=== PATIENT | female | born 1985 | race Caucasian/White ===

== ENCOUNTER → 2023-04-05 15:01 | Outpatient (BNVA) | payer OTHER, SELFPAY | PROVIDERS: Visit Provider Nurse Practitioner Family | DX: R39.89 Other symptoms and signs involving the genitourinary system (principal) | CPT/HCPCS: 81003 ==

== ENCOUNTER 2024-03-31 13:22 | Outpatient (CLI) | payer OTHER, SELFPAY ==
--- NOTE | 2024-03-31 13:26 | XR_ITS ---
WS: [id number] Exam: XR chest 2V* [id number] Date/Time of Exam: 03/31/2024 1:29 PM Reason For Exam: cough No priors. Findings: The lungs are clear and fully expanded. Costophrenic angles are sharp. No infiltrates. Bronchovascula r relief appears normal. Cardiac silhouette is unremarkable. Bony elements are intact. XR/XR chest 2V* [id number] IMPRESSION: Unremarkable chest radiograph.
== END 2024-03-31 13:23 | disposition home or self-care (01) ==
LOC: RAD 13:24
PROVIDERS: PCP Nurse Practitioner Family; Visit Provider Nurse Practitioner Family
DX: R05.9 Cough, unspecified (principal)
CPT/HCPCS: 71046

== ENCOUNTER 2024-06-14 15:17 | Emergency (ER) | payer OTHER, SELFPAY ==
[2024-06-14 15:21] VITALS: BP 133/94; PULSE 88; RESP 16; TEMP 37; O2SAT 100; BMI 22.2
--- NOTE | 2024-06-14 15:26 | ECG_ITS ---
[facility] Date: 2024-06-14 Pat Name: Debbi Ellis Department: Room: Gender: Female Pediatric Cardiologist: : 1985 Requested By: Donato Funez Order Number: [id number] Jeronimo MD: Guy Caceres M.D. 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 [email or web address]
--- NOTE | 2024-06-14 16:14 | W.ED.ABDPA2 ---
HPI - Abdominal Pain General: Chief Complaint: Abdominal Pain Stated Complaint: abd pain, nausua, fever Time Seen by Provider: 06/14/24 15:23 Source: patient Mode of arrival: ambulatory Limitations: no limitations History of Present Illness: Patient is a 39-year-old female with no pertinent past medical history reporting to the emergency department complaining of acute on chronic epigastric pain. She states that she has been dealing with this pain for a while but that it got significantly worse today. She also had labs drawn today through primary care, and was found to have some elevated LFTs as well as elevated total bilirubin. She states that she is set to undergo endoscopy through [facility] in [place], however has not been called with an appointment date. She does report taking omeprazole for this pain, has not been helping. She also was recently started on Synthroid for hypothyroid. She does state that the pain radiates into her back sometimes, she has also been having quite a bit of nausea and bilious diarrhea. She does not report her pain being associated to eating, no specific alleviating or exacerbating factors are reported. She is currently having the pain at this time, reported to be mild. She denies any breathing difficulties, chest pain, cardiac history, vomiting, hematemesis, hematochezia, or urinary symptoms. She does state that she still has her gallbladder and appendix. Her vitals are normal appearing at this time. MD elicited complaint: abdominal pain Pertinent past history: none Onset (ago): month(s) Pain Consistency: intermittent Location: Epigastric Severity: mild Quality: cramping Radiation: back Exacerbating factors: nothing Relieving factors: nothing Associated Symptoms: Reports diarrhea and nausea; Denies bloating, change in stool character, chills, constipation, dysuria, fever(s), hematochezia and vomiting Treatments prior to arrival: antacids Related Data Home Medications Medication Instructions Recorded Confirmed cetirizine 10 mg capsule (Zyrtec) 10 mg PO DAILY PRN allergies 04/05/23 06/14/24 levonorgestrel 21 mcg/24 hr (up to 1 device intrauterine .Q8Y 04/05/23 06/14/24 8 years) 52 mg intrauterine device (Mirena) hydroxyzine HCl 25 mg tablet 25 mg PO BID PRN Insomnia 06/14/24 06/14/24 minocycline 100 mg capsule 100 mg PO BID 06/14/24 06/14/24 Previous Rx's Medication Instructions Recorded sucralfate 1 gram tablet (Carafate) 1 g PO BID #30 tabs 06/14/24 Allergies Allergy/AdvReac Type Severity Reaction Status Date / Time No Known Allergies Allergy Verified 03/20/24 14:15 Review of Systems General: Reports: 10 or more systems reviewed and unremarkable except in HPI and below Const: Denies: fever(s), chills, change in appetite, change in weight or diaphoresis ENMT: Denies: throat pain or hoarseness Card: Denies: chest pain, palpitations or lightheadedness Resp: Denies: dyspnea, productive cough or wheezing GI: Reports: abdominal pain, nausea and diarrhea; Denies: vomiting, constipation, bloating, change in stool character or hematochezia : Denies: flank pain, difficulty voiding, dysuria, urinary frequency or urinary urgency Musc: Reports: back pain; Denies: neck pain Skin/Breast: Denies: rash or new lesions Neuro: Denies: headache(s) or dizziness PFSH ED PFSH: Social History Smoking and tobacco/nicotine status: never used tobacco/nicotine Second hand smoke exposure: No Alcohol intake: never Substance/Drug Use: never Physical Exam Const: COMMON NORMALS: no acute distress, average body habitus, no limitations, healthy appearing and well nourished GENERAL APPEARANCE: cooperative and comfortable ORIENTATION/CONSCIOUSNESS: Yes awake HENMT: COMMON NORMALS: normocephalic, atraumatic, hearing grossly normal bilaterally, external ears normal, Normal external nose present, Normal nasal mucous membranes and turbinates present and moist oral mucous membranes HEAD & SCALP: normocephalic and atraumatic NOSE: Normal external nose present and Normal nasal mucous membranes and turbinates present EXTERNAL EAR: Yes external ears normal Eye: COMMON NORMALS: Equal, round and reactive pupils present, EOMs intact bilaterally, conjunctivae normal and normal visual garcia by confrontation CONJUNCTIVA: Yes conjunctivae normal PUPIL: Yes Equal, round and reactive pupils present Neck/C-Spine: COMMON NORMALS: full ROM, supple and no JVD Resp: COMMON NORMALS: normal respiratory effort, No retractions, No use of accessory muscles and clear to auscultation bilaterally AUSCULTATION: clear to auscultation bilaterally, no crackles, no rales, no rhonchi and no wheezes Cardio: COMMON NORMALS: no JVD, regular rate, regular rhythm, S1 normal heart sound present, S2 normal heart sound present, No gallops present (Cardio), No clicks present (Cardio), No murmurs present (Cardio), No rub (Cardio) and Peripheral pulses 2+ throughout RATE: regular rate RHYTHM: regular rhythm HEART SOUNDS: S1 normal heart sound present and S2 normal heart sound present PERIPHERAL PULSES: Peripheral pulses 2+ throughout GI: COMMON NORMALS: Normal to inspection, nondistended, normoactive bowel sounds present, Soft to palpation, No hepatosplenomegaly present and no masses AUSCULTATION: Yes normoactive bowel sounds PALPATION: Yes Soft to palpation, Yes Tenderness to palpation present (GI) (Epigastric), No Guarding due to palpation present (GI), No Rigid due to palpation and Yes No hepatosplenomegaly present RECTAL EXAM: deferred OTHER: Negative Mora sign. No peritoneal signs. Extremity: COMMON NORMALS: normal to inspection and full ROM Psych: COMMON NORMALS: mental status grossly normal, cooperative and speech normal SPEECH: Yes normal speech Skin: COMMON NORMALS: no rashes or lesions noted GENERAL SKIN EXAM: no rashes or lesions noted Course Vital Signs: Vital signs: Vital Signs Temperature 98.6 F 06/14/24 15:21 Pulse Rate 71 06/14/24 16:31 Respiratory Rate 16 06/14/24 15:21 Blood Pressure 111/75 06/14/24 16:29 Pulse Oximetry 98 06/14/24 16:31 Oxygen Delivery Me thod Room Air 06/14/24 16:31 MDM - Abdominal Pain Medical Decision Making Patient presented with chronic epigastric pain, takes omeprazole. States she is trying to get to general surgery at [facility] but has not been called. Today had labs showing transaminitis with primary care, presented here for evaluation in the emergency department. Her vitals have been stable throughout ED course. There was some epigastric tenderness to palpation on exam, no hepatosplenomegaly or other concerning abdominal findings. No history of abdominal surgeries. Again here she did have evidence of elevation in her LFTs minor elevation in T. bili, denied known diagnosis of Gilbert syndrome or Crigler-Damaris. CT not showing any abnormalities with the liver, gallbladder, or biliary tree. I have very low suspicion for any blocked stone at this time, will refer her to our general surgery here so that they can see her may be quicker. Her pain is much improved after GI cocktail, nausea has been controlled here with Zofran. Her epigastric pain I believe at this time is potentially a gastritis or maybe even a stomach ulcer, and will prescribe Carafate for her to take. Informed her to return with any severe worsening in her pain, yellowing of her skin, high fevers, or bloody/black tarry stools. She agrees with this plan, will be discharged home at this time. Lab Data 06/14/24 16:20 06/14/24 16:20 Labs/Radiology: Radiology Impressions Abdomen/Pelvis CT 06/14/24 16:49 IMPRESSION: No acute findings. Laboratory Results WBC 8.93 10^3/uL (3.29-11.43) 06/14/24 16:20 RBC 3.80 10^6/uL (3.85-5.65) L 06/14/24 16:20 Hgb 11.60 g/dL (11.27-16.99) 06/14/24 16:20 Hct 34.7 % (36-47) L 06/14/24 16:20 MCV 91.3 fl (85-98) 06/14/24 16:20 MCH 30.5 pg (27-33) 06/14/24 16:20 MCHC 33.4 g/dL (30-55) 06/14/24 16:20 RDW 11.9 % (12.1-15.1) L 06/14/24 16:20 Plt Count 244 10^3/cmm (157-399) 06/14/24 16:20 MPV 10.7 fL (7.4-10.4) H 06/14/24 16:20 Neut % (Auto) 87.4 % 06/14/24 16:20 Lymph % (Auto) 6.6 % 06/14/24 16:20 Cecil % (Auto) 4.4 % 06/14/24 16:20 Eos % (Auto) 1.1 % 06/14/24 16:20 Baso % (Auto) 0.3 % 06/14/24 16:20 Neut # (Auto) 7.80 10^3/uL (1.8-7.7) H 06/14/24 16:20 Lymph # (Auto) 0.6 10^3/uL (0.8-4.8) L 06/14/24 16:20 Cecil # (Auto) 0.4 10^3/uL (0.2-0.9) 06/14/24 16:20 Eos # (Auto) 0.1 10^3/uL (0.0-0.8) 06/14/24 16:20 Baso # (Auto) 0.0 10^3/uL (0.0-0.1) 06/14/24 16:20 Nucleated RBC % (auto) 0 % 06/14/24 16:20 Nucleated RBCs # 0.0 /100WBC 06/14/24 16:20 Sodium 139 mmol/L (136-145) 06/14/24 16:20 Potassium 3.6 mmol/L (3.5-5.1) 06/14/24 16:20 Chloride 107 mmol/L (98-107) 06/14/24 16:20 Carbon Dioxide 24 mmol/L (22-29) 06/14/24 16:20 Anion Gap 11.6 (5-19) 06/14/24 16:20 BUN 5 mg/dL (6-20) L 06/14/24 16:20 Creatinine 0.6 mg/dL (0.5-0.9) 06/14/24 16:20 GFR Calculation 111.3 mL/min (90-130) 06/14/24 16:20 Glucose 128 mg/dL (65-115) H 06/14/24 16:20 Calculated Osmolality 287 mOsm/kg (285-295) 06/14/24 16:20 Calcium 9.4 mg/dL (8.5-10.5) 06/14/24 16:20 Total Bilirubin 2.2 mg/dL (0.15-1.2) H 06/14/24 16:20 AST 160 U/L (0-32) H 06/14/24 16:20 ALT 149 U/L (0-33) H 06/14/24 16:20 Alkaline Phosphatase 121 U/L (35-105) H 06/14/24 16:20 Total Protein 6.8 g/dL (6.6-8.7) 06/14/24 16:20 Albumin 4.3 g/dL (3.5-5.2) 06/14/24 16:20 Globulin 2.5 g/dL (1.3-4.6) 06/14/24 16:20 Lipase 26 U/L (13-60) 06/14/24 16:20 HCG, Qual Negative (Negative) 06/14/24 16:20 Urine Color Yellow (Yellow) 06/14/24 15:48 Urine Appearance Clear (CLEAR) 06/14/24 15:48 Urine pH 6.0 (5-7) 06/14/24 15:48 Ur Specific [place] 1.009 (1.005-1.030) 06/14/24 15:48 Urine Protein Negative (Negative) 06/14/24 15:48 Urine Glucose (UA) Negative (Normal) 06/14/24 15:48 Urine Ketones Negative (Negative) 06/14/24 15:48 Urine Blood 3+ (Negative) A 06/14/24 15:48 Urine Nitrate Negative (Negative) 06/14/24 15:48 Urine Bilirubin Negative (Negative) 06/14/24 15:48 Urine Urobilinogen 1.0 mg/dL (Negative) 06/14/24 15:48 Ur Leukocyte Esterase Trace (Negative) A 06/14/24 15:48 Urine RBC 0-2 /hpf (0-2) 06/14/24 15:48 Urine WBC 6-10 /hpf (0-5) 06/14/24 15:48 Ur Squamous Epith Cells 0-5 /hpf (0-5) 06/14/24 15:48 Amorphous Sediment Not Reportable 06/14/24 15:48 Urine Bacteria None seen /hpf (NONE) 06/14/24 15:48 Hyaline Casts 0-4 /lpf H 06/14/24 15:48 All radiology interpretation(s) finalized by discharge Discharge Plan Discharge Patient Disposition: Home Clinical Impression: Epigastric abdominal pain, Transaminitis Condition: Stable Prescriptions: New sucralfate [Carafate] 1 gram tablet 1 g PO BID Qty: 30 0RF No Action Zyrtec 10 mg capsule 10 mg PO DAILY PRN (Reason: allergies) Mirena 21 mcg/24 hours (8 yrs) 52 mg intrauterine device 1 device intrauterine .Q8Y minocycline 100 mg capsule 100 mg PO BID hydroxyzine HCl 25 mg tablet 25 mg PO BID PRN (Reason: Insomnia) Discharge Orders: Discharge ED (Routine); Ordered 06/14/24 Ordered By: Donato Urbina Referrals: Misti Alcantar FNP [Primary Care Provider] - Patient Instructions: Abdominal Pain (ED) Activity Restrictions/Additional Instructions: Follow-up with general surgery, await call to schedule an appointment. Take Carafate, also continue taking omeprazole. Avoid any exacerbating food or drinks such as coffee or chocolate. Please monitor your condition return to the emergency department with any new or concerning symptoms. Make sure to drink plenty of water. Coding Level of Care Code ED Liner Machine Operator for Tyler Sánchez
[2024-06-14 16:28] LABS: Basophils % 0.3 %; Eosinophils # 0.1 10^3/uL (0.0-0.8); Eosinophils % 1.1 %; Hematocrit 34.7 % (36-47); Lymphocytes # 0.6 10^3/uL (0.8-4.8); Lymphocytes % 6.6 %; Mean Corpuscular HGB Conc 33.4 g/dL (30-55); Mean Corpuscular Hemoglobin 30.5 pg (27-33); Mean Corpuscular Volume 91.3 fl (85-98); Mean Platelet Volume 10.7 fL (7.4-10.4); Monocytes # 0.4 10^3/uL (0.2-0.9); Monocytes % 4.4 %; Neutrophils % 87.4 %; Nucleated Red Blood Cells % 0 %; Platelet Count 244 10^3/cmm (157-399); Red Cell Distribution Width 11.9 % (12.1-15.1); White Blood Count 8.93 10^3/uL (3.29-11.43)
[2024-06-14] MEDS: ondansetron 2 mg/ML SDV 2 mL 4 MG IVP ×2 (16:28→18:32)
[2024-06-14 16:29] VITALS: BP 111/75; PULSE 71; O2SAT 99
[2024-06-14 16:31] VITALS: PULSE 71; O2SAT 98
[2024-06-14] MEDS: lidocaine 2% viscous 15 ML, aluminum-mag hydrox-simethicon 30 ML, sucralfate oral liq 1 GM PO (16:34)
--- NOTE | 2024-06-14 16:37 | PC.PHAR ---
Patient has Mirena but unsure of the time frame.States it has been few years.
[2024-06-14 16:38] LABS: HCG, Serum Qual Negative (Negative)
[2024-06-14 16:43] LABS: Alanine Aminotransferase 149 U/L (0-33); Albumin Level 4.3 g/dL (3.5-5.2); Alkaline Phosphatase 121 U/L (35-105); Anion Gap 11.6 (5-19); Aspartate Amino Transferase 160 U/L (0-32); Blood Urea Nitrogen 5 mg/dL (6-20); Calcium 9.4 mg/dL (8.5-10.5); Carbon Dioxide 24 mmol/L (22-29); Chloride 107 mmol/L (98-107); Creatinine Clr Calc Pharmacy 137.5643; Globulin 2.5 g/dL (1.3-4.6); Glomerular Filtration Rate 111.3 mL/min (90-130); Glucose 128 mg/dL (65-115); Lipase 26 U/L (13-60); Osmolality Calculated 287 mOsm/kg (285-295); Potassium 3.6 mmol/L (3.5-5.1); Sodium 139 mmol/L (136-145); Total Bilirubin 2.2 mg/dL (0.15-1.2); Total Protein 6.8 g/dL (6.6-8.7)
--- NOTE | 2024-06-14 16:49 | CTR_ITS ---
PROCEDURE INFORMATION: Exam: CT Abdomen And Pelvis With Contrast Exam date and time: 06/14/2024 5:06 PM Age: 39 years old Clinical indication: Abdominal pain; Epigastric pain, elevated tbili and lfts TECHNIQUE: Imaging protocol: Computed tomography of the abdomen and pelvis with contrast. Radiation optimization: All CT scans at this facility use at least one of these dose optimization techniques: automated exposure control; mA and/or kV adjustment per patient size (includes targeted exams where dose is matched to clinical indication); or iterative reconstruction. Contrast material: OMNIPAQUE 350; Contrast volume: 100 ml; Contrast route: INTRAVENOUS (IV); COMPARISON: CR XR chest 2V* [id number] 03/31/2024 1:32 PM RADIATION DOSE METRICS: Total DLP (mGy-cm): 396.43 FINDINGS: Liver: Normal. No mass. Gallbladder and biliary ducts: Normal. No calcified stones. No ductal dilation. Pancreas: Normal. No ductal dilation. Spleen: Normal. No splenomegaly. Adrenal glands: Normal. No mass. Kidneys and ureters: Normal. No hydronephrosis. Stomach and bowel: Unremarkable. No obstruction. No mucosal thickening. Appendix: No evidence of appendicitis. Intraperitoneal space: Unremarkable. No free air. No significant fluid collection. Vasculature: Unremarkable. No abdominal aortic aneurysm. Lymph nodes: Unremarkable. No enlarged lymph nodes. Urinary bladder: Unremarkable as visualized. Reproductive: There is an IUD in the uterus. Bones/joints: Unremarkable. No acute fracture. Soft tissues: Unremarkable. CT/CT abdomen pelvis w con* [id number] IMPRESSION: No acute findings.
[2024-06-14 16:52] LABS: Bilirubin Urine Negative (Negative); Blood Urine 3+ (Negative); Glucose Urine UA Negative (Normal); Ketones Urine Negative (Negative); Leukocyte Esterase Urine Trace (Negative); Nitrate Urine Negative (Negative); Protein Urine Negative (Negative); Specific Gravity, Urine 1.009 (1.005-1.030); Urine Appearance Clear (CLEAR); Urine Color Yellow (Yellow)
[2024-06-14 16:58] LABS: Add Urine Microscopic? YES; Bacteria Urine None Seen /hpf; Hyaline Casts Urine 0-4 /lpf; RBC Urine 0-2 /hpf (0-2); Squamous Epithelial Cell Urine 0-5 /hpf (0-5)
[2024-06-14] MEDS: iohexol 350 mg/mL 500 mL Btl (per mL) IV (17:10)
[2024-06-14 17:12] LABS: Add Urine Culture? No
--- NOTE | 2024-06-15 09:48 | DCPLANNER ---
messaged gen surg for er f/u
== END 2024-06-14 18:40 | disposition home or self-care (01) ==
PROVIDERS: Family Medicine; Emergency Provider Physician Assistant; PCP Nurse Practitioner Family
DX: R10.13 Epigastric pain (principal); R74.01 Elevation of levels of liver transaminase levels
CPT/HCPCS: 36415; 74177; 80053; 81001; 83690; 84703; 85025; 93005; 96374; 96376; 99285; J2405

== ENCOUNTER 2024-06-16 07:41 | Outpatient (CLI) | payer OTHER, SELFPAY ==
--- NOTE | 2024-06-16 07:47 | US_ITS ---
WS: [id number] RIGHT UPPER QUADRANT ULTRASOUND HISTORY: ELEVATED LIVER ENZYMES COMPARISON: None available. Liver: 14.0 cm in length. Normal size liver and echogenicity. No bile duct dilatation or mass. Portal Vein: Normal hepatopetal flow with monophasic waveform. Gallbladder: Normally distended gallbladder with no stones or wall thickening. CBD: 0.3 cm Pancreas: Normal size and echogenicity. Right kidney: 11.1 cm in length. Normal size and echogenicity. No hydronephrosis or mass. Aorta and IVC: Unremarkable abdominal aorta and IVC. No ascites. US/US gall bladder [id number] IMPRESSION: Normal right upper quadrant ultrasound.
== END 2024-06-16 07:42 | disposition home or self-care (01) ==
PROVIDERS: PCP Nurse Practitioner Family; Visit Provider Nurse Practitioner Family
DX: R74.01 Elevation of levels of liver transaminase levels (principal)
CPT/HCPCS: 76705

== ENCOUNTER 2024-08-11 17:06 | Emergency (ER) | payer OTHER, SELFPAY ==
[2024-08-11 17:06] VITALS: BP 126/76; PULSE 64; RESP 16; TEMP 36.3; O2SAT 98; BMI 21.2
--- NOTE | 2024-08-11 17:23 | CTR_ITS ---
PROCEDURE INFORMATION: Exam: CTA Head With Contrast, Arteriography Exam date and time: 08/11/2024 5:48 PM Age: 39 years old Clinical indication: Dizziness and giddiness; Headache; C/O PRICE with dizziness and nasuea. Posterior neck pain. TECHNIQUE: Imaging protocol: Computed tomographic angiography of the head with contrast. Exam focused on the arteries. Axial, coronal and sagittal reformatted images were created and reviewed. 3D rendering (Not supervised by radiologist): MIP and/or 3D reconstructed images were created by the technologist. Radiation optimization: All CT scans at this facility use at least one of these dose optimization techniques: automated exposure control; mA and/or kV adjustment per patient size (includes targeted exams where dose is matched to clinical indication); or iterative reconstruction. Contrast material: OMNI 350; Contrast volume: 100 ml; Contrast route: INTRAVENOUS (IV); COMPARISON: CT head wo con* [id number] 08/11/2024 5:48 PM RADIATION DOSE METRICS: Total DLP (mGy-cm): 380.36 FINDINGS: ANTERIOR CIRCULATION: Right internal carotid artery: Intracranial segment is patent with no significant stenosis. No aneurysm. Right middle cerebral artery: No occlusion or significant stenosis. No aneurysm. Right anterior cerebral artery: No occlusion or significant stenosis. No aneurysm. Left internal carotid artery: Intracranial segment is patent with no significant stenosis. No aneurysm. Left middle cerebral artery: No occlusion or significant stenosis. No aneurysm. Left anterior cerebral artery: No occlusion or significant stenosis. No aneurysm. POSTERIOR CIRCULATION: Right vertebral artery: No occlusion or significant stenosis. No aneurysm. Left vertebral artery: No occlusion or significant stenosis. No aneurysm. Basilar artery: No occlusion or significant stenosis. No aneurysm. Right posterior cerebral artery: No occlusion or significant stenosis. No aneurysm. Left posterior cerebral artery: No occlusion or significant stenosis. No aneurysm. Brain: No definite mass, mass effect, or midline shift. Cerebral ventricles: No ventriculomegaly. Bones/joints: Unremarkable. No acute fracture. Soft tissues: Unremarkable. PROCEDURE INFORMATION: Exam: CTA Neck With Contrast Exam date and time: 08/11/2024 5:48 PM Age: 39 years old Clinical indication: Dizziness and giddiness; Headache; C/O PRICE with dizziness and nasuea. Posterior neck pain. TECHNIQUE: Imaging protocol: Computed tomographic angiography of the neck with contrast. Exam focused on the cervical segments of the vasculature. Axial, coronal and sagittal reformatted images were created and reviewed. 3D rendering (Not supervised by radiologist): MIP and/or 3D reconstructed images were created by the technologist. Radiation optimization: All CT scans at this facility use at least one of these dose optimization techniques: automated exposure control; mA and/or kV adjustment per patient size (includes targeted exams where dose is matched to clinical indication); or iterative reconstruction. Contrast material: OMNI 350; Contrast volume: 100 ml; Contrast route: INTRAVENOUS (IV); COMPARISON: CT head wo [facility]* [id number] 08/11/2024 5:48 PM RADIATION DOSE METRICS: Total DLP (mGy-cm): 380.36 FINDINGS: Right common carotid artery: No stenosis. No dissection or occlusion. Right internal carotid artery: Normal. Extracranial segment patent with no significant stenosis. No dissection or occlusion. Right external carotid artery: No occlusion or stenosis of the origin. Left common carotid artery: No stenosis. No dissection or occlusion. Left internal carotid artery: Normal. Extracranial segment patent with no significant stenosis. No dissection or occlusion. Left external carotid artery: No occlusion or stenosis of the origin. Right vertebral artery: No stenosis. No dissection or occlusion. Left vertebral artery: No stenosis. No dissection or occlusion. Soft tissues: Unremarkable. Bones/joints: No acute osseous abnormality. Slight reversal of the normal cervical lordosis. CT/CT angio headneck* [id number] IMPRESSION: No large vessel stenosis or occlusion. IMPRESSION: No stenosis or occlusion. REFERENCES: NASCET CRITERIA. The degree of stenosis in the cervical segment of the internal carotid artery is based on NASCET criteria. Normal is no stenosis. Mild is less than 50% stenosis. Moderate is 50-69% stenosis. Severe is 70% to 99% stenosis. Total occlusion is no detectable patent lumen.
--- NOTE | 2024-08-11 17:23 | CTR_ITS ---
PROCEDURE INFORMATION: Exam: CT Head Without Contrast Exam date and time: 08/11/2024 5:48 PM Age: 39 years old Clinical indication: Headache and other: Neck pain; C/O PRICE with dizziness and nasuea. Posterior neck pain. TECHNIQUE: Imaging protocol: Computed tomography of the head without contrast. Axial, coronal and sagittal reformatted images were created and reviewed. Radiation optimization: All CT scans at this facility use at least one of these dose optimization techniques: automated exposure control; mA and/or kV adjustment per patient size (includes targeted exams where dose is matched to clinical indication); or iterative reconstruction. COMPARISON: CT angio headneck* [id number] 08/11/2024 5:48 PM RADIATION DOSE METRICS: Total DLP (mGy-cm): 1079.38 FINDINGS: Brain: No CT evidence of acute intracranial hemorrhage or acute territorial infarction. No significant mass effect or midline shift. Basal cisterns patent. Cerebral ventricles: Normal in size and configuration. Paranasal sinuses: Unremarkable. No fluid levels. Mastoid air cells: Grossly unremarkable. Bones: Unremarkable. No acute fracture. Soft tissues: Grossly unremarkable. CT/CT head wo con* [id number] IMPRESSION: No CT evidence of acute intracranial pathology.
--- NOTE | 2024-08-11 17:24 | ED_ITS ---
HPI - Headache 2 General: Chief Complaint: Headache Stated Complaint: neck pain,headache Time Seen by Provider: 08/11/24 17:17 Source: patient Mode of arrival: ambulatory Limitations: no limitations History of Present Illness: 39-year-old female states been having a headache little over a week. States been a posterior headache states she is also been having posterior neck pain has been going on roughly for a month. States that the tension-like pain she had some photophobia and phonophobia she denies any fevers denies any injuries states headaches currently a 6 out of 10. Associated symptoms: Deny chest pain, fever(s), nausea, rash or vomiting Related Data Home Medications ?Medication ?Instructions ?Recorded ?Confirmed cetirizine 10 mg capsule (Zyrtec) 10 mg PO DAILY PRN a llergies 04/05/23 06/14/24 levonorgestrel 21 mcg/24 hr (up to 1 device intrauteri ne .Q8Y 04/05/23 06/14/24 8 years) 52 mg intrauterine device (Mirena) hydroxyzine HCl 25 mg tablet 25 mg PO BID PRN Insomnia 06/14/24 06/14/24 minocycline 100 mg capsule 100 mg PO BID 06/14/2405/28 Previous Rx's ?Medication ?Instructions ?Recorded sucralfate 1 gram tablet (Carafate) 1 g PO BID #30 tab s 06/14/24 Allergies Allergy/AdvReac Type Severity Reaction Status Date / Time No Known Allergies Allergy Verified 03/20/24 14:15 Review of Systems 2 Const: Denies: fever(s), chills, body aches or change in appetite Eyes: Denies: blurry vision or eye discomfort ENMT: Denies: throat pain or dental pain Card: Denies: chest pain Resp: Denies: dyspnea GI: Denies: abdominal pain, nausea, vomiting or diarrhea Musc: Reports: neck pain; Denies: back pain Skin/Breast: Denies: rash Neuro: Reports: headache(s) PFSH ED 2 PFSH: Social History Smoking and tobacco/nicotine status: never used tobacco/nicotine Second hand smoke exposure: No Alcohol intake: never Substance/Drug Use: never Physical Exam 2 Const: COMMON NORMALS: no acute distress, patient oriented x3 and healthy appearing HENMT: COMMON NORMALS: normocephalic and atraumatic HEAD & SCALP: n ormocephalic and atraumatic Eye: COMMON NORMALS: Equal, round and reactive pupils present and EOMs intact bilaterally PUPIL: Yes Equal, round and reactive pupils present Neck/C-Spine: COMMON NORMALS: full ROM, supple and no meningeal signs Chest: COMMONS NORMALS: normal inspection of the chest Resp: COMMON NORMALS: normal respiratory effort Cardio: COMMON NORMALS: regular rate, regular rhythm and No murmurs present (Cardio) RATE: regular rate RHYTHM: regular rhythm Extremity: COMMON NORMALS: normal to inspection and full ROM Neuro: COMMON NORMALS: patient oriented x3, moves all extremities and no focal motor deficits MENINGEAL SIGNS: Yes no meningeal signs Psych: COMMON NORMALS: mental status grossly normal, Normal thought process present and cooperative THOUGHT PROCESS: Normal thought process present Skin: COMMON NORMALS: no rashes or lesions noted and no wounds GENERAL SKIN EXAM: no rashes or lesions noted Course 2 Vital Signs: Vital signs: Vital Signs Temperature 97.4 F L 08/11/24 17:06 Pulse Rate 85 08/11/24 18:30 Respiratory Rate 16 08/11/24 18:30 Blood Pressure 120/80 08/11/24 18:30 Pulse Oximetry 100 08/11/24 18:30 Oxygen Delivery Me thod Room Air 08/11/24 17:06 MDM - Headache Medical Decision Making Patient presents here with a headaches likely tension headache imaging here is normal no signs of intracranial hemorrhage dissection or aneurysm her headache has improved here she stable for discharge follow-up PCP return if worsening. Medical Records I reviewed the patient's medical records. Lab Data I reviewed the patient's lab results. 08/11/24 18:05 08/11/24 18:[address] 08/11/24 17:23 IMPRESSION: No CT evidence of acute intracranial pathology. Head/Neck CTA 08/11/24 17:23 IMPRESSION: No large vessel stenosis or occlusion. IMPRESSION: No stenosis or occlusion. REFERENCES: NASCET CRITERIA. The degree of stenosis in the cervical segment of the internal carotid artery is based on NASCET criteria. Normal is no stenosis. Mild is less than 50% stenosis. Moderate is 50-69% stenosis. Severe is 70% to 99% stenosis. Total occlusion is no detectable patent lumen. Laboratory Results WBC 9.83 10^3/uL (3.29-11.43) 08/11/24 18:05 RBC 4.10 10^6/uL (3.85-5.65) 08/11/24 18:05 Hgb 12.60 g/dL (11.27-16.99) 08/11/24 18:05 Hct 37.9 % (36-47) 08/11/24 18:05 MCV 92.4 fl (85-98) 08/11/24 18:05 MCH 30.7 pg (27-33) 08/11/24 18:05 MCHC 33.2 g/dL (30-55) 08/11/24 18:05 RDW 11.9 % (12.1-15.1) L 08/11/24 18:05 Plt Count 275 10^3/cmm (157-399) 08/11/24 18:05 MPV 11.0 fL (7.4-10.4) H 08/11/24 18:05 Neut % (Auto) 82.7 % 08/11/24 18:05 Lymph % (Auto) 11.2 % 08/11/24 18:05 Murray % (Auto) 5.3 % 08/11/24 18:05 Eos % (Auto) 0.4 % 08/11/24 18:05 Baso % (Auto) 0.2 % 08/11/24 18:05 Neut # (Auto) 8.13 10^3/uL (1.8-7.7) H 08/11/24 18:05 Lymph # (Auto) 1.1 10^3/uL (0.8-4.8) 08/11/24 18:05 Murray # (Auto) 0.5 10^3/uL (0.2-0.9) 08/11/24 18:05 Eos # (Auto) 0.0 10^3/uL (0.0-0.8) 08/11/24 18:05 Baso # (Auto) 0.0 10^3/uL (0.0-0.1) 08/11/24 18:05 Nucleated RBC % (auto) 0 % 08/11/24 18:05 Nucleated RBCs # 0.0 /100WBC 08/11/24 18:05 Sodium 136 mmol/L (136-145) 08/11/24 18:05 Potassium 3.4 mmol/L (3.5-5.1) L 08/11/24 18:05 Chloride 101 mmol/L (98-107) 08/11/24 18:05 Carbon Dioxide 24 mmol/L (22-29) 08/11/24 18:05 Anion Gap 14.4 (5-19) 08/11/24 18:05 BUN 10 mg/dL (6-20) 08/11/24 18:05 Creatinine 0.6 mg/dL (0.5-0.9) 08/11/24 18:05 GFR Calculation 111.3 mL/min (90-130) 08/11/24 18:05 Glucose 103 mg/dL (65-115) 08/11/24 18:05 Calculated Osmolality 281 mOsm/kg (285-295) L 08/11/24 18:05 Calcium 9.5 mg/dL (8.5-10.5) 08/11/24 18:05 Total Bilirubin 1.5 mg/dL (0.15-1.2) H 08/11/24 18:05 AST 28 U/L (0-32) 08/11/24 18:05 ALT 69 U/L (0-33) H 08/11/24 18:05 Alkaline Phosphatase 114 U/L (35-105) H 08/11/24 18:05 Total Protein 6.9 g/dL (6.6-8.7) 08/11/24 18:05 Albumin 4.5 g/dL (3.5-5.2) 08/11/24 18:05 Globulin 2.4 g/dL (1.3-4.6) 08/11/24 18:05 All radiology interpretation(s) finalized by discharge Discharge Plan Discharge Patient Disposition: Home Clinical Impression: Headache Condition: Stable Prescriptions: No Action Zyrtec 10 mg capsule 10 mg PO DAILY PRN (Reason: allergies) Mirena 21 mcg/24 hours (8 yrs) 52 mg intrauterine device 1 device intrauterine .Q8Y minocycline 100 mg capsule 100 mg PO BID hydroxyzine HCl 25 mg tablet 25 mg PO BID PRN (Reason: Insomnia) sucralfate [Carafate] 1 gram tablet 1 g PO BID Qty: 30 0RF Discharge Orders: Discharge ED (Routine); Ordered 08/11/24 Ordered By: Sakina Christianson Referrals: Misti Alcantar FNP [Primary Care Provider] - Discharge Diet: Advance as tolerated Discharge Activity: Resume usual activity Patient Instructions: General Headache (ED) Print Language: Montserratian Coding Level of Care Code ED Instrument Designer for Tyler Sánchez
[2024-08-11] MEDS: iohexol 350 mg/mL 500 mL Btl (per mL) IV (17:32)
[2024-08-11] MEDS: promethazine 25 mg/mL SDV 1 mL IM (18:05)
[2024-08-11] MEDS: ketorolac 30 mg/mL INJ IVP (18:05)
[2024-08-11 18:11] LABS: Basophils % 0.2 %; Eosinophils % 0.4 %; Hematocrit 37.9 % (36-47); Lymphocytes # 1.1 10^3/uL (0.8-4.8); Lymphocytes % 11.2 %; Mean Corpuscular HGB Conc 33.2 g/dL (30-55); Mean Corpuscular Hemoglobin 30.7 pg (27-33); Mean Corpuscular Volume 92.4 fl (85-98); Monocytes # 0.5 10^3/uL (0.2-0.9); Monocytes % 5.3 %; Neutrophils # 8.13 10^3/uL (1.8-7.7); Neutrophils % 82.7 %; Nucleated Red Blood Cells % 0 %; Platelet Count 275 10^3/cmm (157-399); Red Cell Distribution Width 11.9 % (12.1-15.1); White Blood Count 9.83 10^3/uL (3.29-11.43)
[2024-08-11 18:21] VITALS: BP 118/54; O2SAT 100
[2024-08-11 18:30] VITALS: BP 120/80; PULSE 85; RESP 16; O2SAT 100
[2024-08-11 18:35] LABS: Alanine Aminotransferase 69 U/L (0-33); Albumin Level 4.5 g/dL (3.5-5.2); Alkaline Phosphatase 114 U/L (35-105); Anion Gap 14.4 (5-19); Aspartate Amino Transferase 28 U/L (0-32); Blood Urea Nitrogen 10 mg/dL (6-20); Calcium 9.5 mg/dL (8.5-10.5); Carbon Dioxide 24 mmol/L (22-29); Chloride 101 mmol/L (98-107); Creatinine Clr Calc Pharmacy 135.0405; Globulin 2.4 g/dL (1.3-4.6); Glomerular Filtration Rate 111.3 mL/min (90-130); Glucose 103 mg/dL (65-115); Osmolality Calculated 281 mOsm/kg (285-295); Potassium 3.4 mmol/L (3.5-5.1); Sodium 136 mmol/L (136-145); Total Bilirubin 1.5 mg/dL (0.15-1.2); Total Protein 6.9 g/dL (6.6-8.7)
[2024-08-11 19:02] VITALS: BP 120/80; PULSE 80; RESP 16; O2SAT 100
== END 2024-08-11 19:03 | disposition home or self-care (01) ==
PROVIDERS: Emergency Provider Emergency Medicine; PCP Nurse Practitioner Family
DX: R51.9 Headache, unspecified (principal)
CPT/HCPCS: 36415; 70450; 70496; 70498; 80053; 85025; 96372; 96374; 99285; J1885; J2550

== ENCOUNTER 2025-01-08 20:46 | Emergency (ER) | payer OTHER, SELFPAY ==
--- NOTE | 2025-01-08 20:49 | XRR_ITS ---
PROCEDURE INFORMATION: Exam: XR Chest Exam date and time: 01/08/2025 9:05 PM Age: 39 years old Clinical indication: Pain; Chest pressure; Additional info: Cp TECHNIQUE: Imaging protocol: Radiologic exam of the chest. Views: 1 view. COMPARISON: CR XR chest 2V* [id number] 03/31/2024 1:32 PM FINDINGS: Lungs: Unremarkable. No consolidation. Pleural spaces: Unremarkable. No pleural effusion. No pneumothorax. Heart/Mediastinum: Unremarkable. No cardiomegaly. Bones/joints: Unremarkable. XR/XR chest 1V portable [id number] IMPRESSION: No acute findings.
--- NOTE | 2025-01-08 20:52 | ECG_ITS ---
[facility] Date: 2025-01-08 Pat Name: Debbi Ellis Department: Room: Gender: Female [employer]per: : 1985 Requested By: Sakina Christianson Order Number: [id number] Phani MD: Guy Caceres M.D. Measurements Intervals [place] Rate: 63 P: 70 [place]: 150 QRS: 3 QRSD: 83 T: 53 QT: 378 QTc: 389 Interpretive Statements SINUS RHYTHM POSSIBLE LEFT ATRIAL ENLARGEMENT [-0.1mV P-WAVE IN V1/V2] POSSIBLE RIGHT VENTRICULAR CONDUCTION DELAY [RSR (QR) IN V1/V2] INTERPRETATION BASED ON A DEFAULT AGE OF 40 YEARS Compared to ECG 06/14/2024 15:26:19 Ectopic atrial rhythm no longer present T-wave abnormality no longer present Possible ischemia no longer present Electronically Signed On 01-09-2025 09:47:30 CDT by Guy Caceres M.D. [email or web address]
--- OUTSIDE RECORDS SUMMARY | 2025-01-08 20:52 | XMS_ITS | Data Portability ---
Author Organization [facility] Maty [place] [facility] Address [address] [address] Assessment Encounter Date Assessment Date Assessment LastModified by Organization Details LastModified Time 05/13/2023 05/13/[address] 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 Not available 05/13/2023 10:21:39 04/11/2024 04/11/2024 Patient here today for a cough that won't go away. Not available 04/11/2024 09:35:21 05/31/2024 05/31/2024 For a short window she felt like she was doing better. Then sometimes now she feels like she swallows and it feels weird. She has spoken with GI from [place] and would like to be seen with them urgently. Not available 05/31/2024 16:36:42 Plan of Treatment Reminders Order Date Submit Date Provider Last Modified By Organization Details Last Modified Time Details Appointments None recorded. Lab CMP, serum or plasma 2023 024 [place], [address], [address], [place], [address], 13:19:20 thyrotropin , QN, serum or plasma 2023 024 [place] [facility], [address], [address], [place], [address], 16:15:25 CMP, serum or plasma 2023 024 [place]AYLA [facility], [address], [address], [place], [address], 4 15:27:53 lipid panel, blood 2023 024 K[facility]LA [facility], [address], [address], [place], [address], 4 15:27:56 CBC 2023 024 [facility]LA [facility], [address], [address], [place], [address], 4 15:07:10 vitamin B12 + folate, serum or blood 2023 024 [facility], [address], [address], [place], [address], 4 09:36:33 vitamin D, 25-hydroxy, total, serum 2023 024 [facility], [address], [address], [place], [address], 4 09:36:34 CMP, serum or plasma 2022 023 [facility], [address], [address], [place], [address], 3 12:10:51 lipid panel, blood 2022 023 [facility], [address], [address], [place], [address], 3 12:10:52 CBC 2022 023 [facility]LA [facility], [address], [address], [place], [address], 3 11:44:06 TSH, serum or plasma 2022 023 [facility] ([facility]), [address] [place], [address], 3 11:50:13 Referral otolaryngol ogist referral 2023 024 [email or web address] Mata Cortez MD, [address] , [place], [address], 4 14:03:06 gastroenter ologist referral - Urgent please. 2023 024 [email or web address] Divina Davies MD, [address] [facility], [address], [place], [address], 4 09:52:55 gastroenter ologist referral 2022 023 [email or web address] 2 Not available 3 11:21:32 Procedures None recorded. Surgeries None recorded. Imaging None recorded. Medication Orders omeprazole 20 mg capsule,del ayed release 2023 024 [facility], [address] [place] [address], [address], 4 17:18:48 Symbicort 160 mcg-4.5 mcg/actuati on HFA aerosol inhaler 2023 024 [facility], [address] [place] [address], [address], 4 11:36:32 montelukast 10 mg tablet 2023 024 [facility], [address] [place] [address], [address], 4 11:36:32 doxycycline hyclate 100 mg capsule 2023 024 [facility], [address] [place], [address], 09:09:49 pantoprazol e 40 mg tablet,zechariah yed release 2022 024 [facility] [place], [address] [place], [address], 11:31:49 Patient TargetsNo targets recorded. Patient Instructions Encounter Date Encounter Id Patient Instructions Last Modified By Organization Details Last Modified Time 05/13/2023 [id number] Call or return for questions or concerns. Not available 05/13/2023 10:21:00 04/11/2024 [id number] Return to clinic if worsening symptoms or if not improving. 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 [facility] [address], [place], [address], 05/13/2023 11:44:06 05/13/2005/13/2023 CBC RBC 4.22 x10 3.50-5 .50 Not Available [facility] [address] [facility] [address], [place], [address], 05/13/2023 11:44:06 05/13/2005/13/2023 CBC HGB 13.5 g/dL 12.0-1 6.0 Not Available [facility] [address], [place], [address], 05/13/2023 11:44:06 05/13/20 23 05/13/2023 CBC HCT 38.7 % 37.0-4 7.0 Not Available [facility] [address], [place], [address], 05/13/2023 11:44:06 05/13/20 23 05/13/2023 CBC MCV 91.8 fL 80.0-9 9.9 Not Available [facility] [address] [facility] 1, [place], [address], 05/13/2023 11:44:06 05/13/20 23 05/13/2023 CBC MCH 31.9 pg 27.0-3 2.0 Not Available [facility] [address], [place], [address], 05/13/2023 11:44:06 05/13/20 23 05/13/2023 CBC MCHC 34.8 g/dL 32.0-3 6.0 Not Available [facility] [address] [facility] 1, [place], [address], 05/13/2023 11:44:06 05/13/20 23 05/13/2023 CBC RDW 13.1 % 11.5-1 4.6 Not Available [facility] [address], [place], [address], 05/13/2023 11:44:06 05/13/2005/13/2023 CBC plt 263.3 x10 140.0- 451.0 Not Available [facility] [address] [facility] 1, [place], [address], 05/13/2023 11:44:06 05/13/20 23 05/13/2023 CBC lymphocytes % 24.7 % 20.0-5 0.0 Not Available [facility] [address] [place] [address] [facility], [place], [address], 05/13/2023 11:44:06 05/13/20 23 05/13/2023 CBC granulcytes % 66.4 % 30.0-7 0.0 Not Available [facility] [address] [place] [address] [facility] 1, [place], [address], 05/13/2023 11:44:06 05/13/20 23 05/13/2023 CBC monocytes % 7.3 % 2.0-10 .0 Not Available [facility] [address] [place] [address] [facility], [place], [address], 05/13/2023 11:44:06 05/13/20 23 05/13/2023 CBC granulcytes# 3.7 x10 Not Kori ilable [facility] [address] [facility] [facility], [place], [address], 05/13/2023 11:44:06 05/13/20 23 05/13/2023 CBC lymphocytes # 1.4 x10 Not Available [facility] [address] [facility] [facility], [place], [address], 05/13/2023 11:44:06 05/13/20 23 05/13/2023 CBC monocytes # 0.4 x10 Not Avai lable [facility] [address] [place] [address] [facility], [place], [address], 05/13/2023 11:44:06 05/13/20 23 05/13/2023 CMP (FEMA LE) glucose 91.0 mg/dL 60.0-9 9.0 Not Available [facility] [address] [place] [address] [facility], [place], [address], 05/13/2023 12:10:51 05/13/20 23 05/13/2023 CMP (FEMA LE) BUN (blood urea nitrogen) 5.0 mg/dL 10.0-2 6.0 low Not Available [facility] [address] [facility] 1, [place], [address], 05/13/2023 12:10:51 05/13/20 23 05/13/2023 CMP (FEMA LE) creatinine (serum) 0.6 mg/dL 0.4-1. 5 Not Available [facility] [address] [place] [address] [facility], [place], [address], 05/13/2023 12:10:51 05/13/20 23 05/13/2023 CMP (FEMA LE) BUN/creatini ne ratio 8.33 ratio Not Available [facility] [address] [facility], [place], [address], 05/13/2023 12:10:51 05/13/20 23 05/13/2023 CMP (FEMA LE) eGFR calculated 118.9 Not Available [facility] [address] [facility], [place], [address], 05/13/2023 12:10:51 05/13/20 23 05/13/2023 CMP (FEMA LE) total protein 7.2 g/dL 6.0-8. 5 Not Available [facility] [address] [place] [address] [facility], [place], [address], 05/13/2023 12:10:51 05/13/2005/13/2023 CMP (FEMA LE) total bilirubin 1.4 mg/dL 0.2-1. 3 high Not Available [facility] [address], [place], [address], 05/13/2023 12:10:51 05/13/2005/13/2023 CMP (FEMA LE) albumin 4.6 g/dL 3.5-5. 5 Not Available [facility] [address] [facility], [place], [address], 05/13/2023 12:10:51 05/13/20 23 05/13/2023 CMP (FEMA LE) globulin 2.6 calc Not Available [facility] [address] [place] [facility], [place], [address], 05/13/2023 12:10:51 05/13/20 23 05/13/2023 CMP (FEMA LE) AST (SGOT) 33.0 U/L 0.0-46 .0 Not Available [facility] [address] [place] [facility], [place], [address], 05/13/2023 12:10:51 05/13/20 23 05/13/2023 CMP (FEMA LE) altv (SGPT) 38.0 U/L 13.0-6 9.0 normal Not Available [facility] [address] [place] [address] [facility] 1, [place], [address], 05/13/2023 12:10:51 05/13/20 23 05/13/2023 CMP (FEMA LE) A/G ratio 1.8 ratio Not Available [facility] [address] [place] [facility], [place], [address], 05/13/2023 12:10:51 05/13/20 23 05/13/2023 CMP (FEMA LE) ALP phos 78.0 U/L 30.0-1 40.0 normal Not Available [facility] [address] [facility] 1, [place], [address], 05/13/2023 12:10:51 05/13/20 23 05/13/2023 CMP (FEMA LE) calcium 9.1 mg/dL 8.4-10 .5 Not Available [facility] [address] [facility] 1, [place], [address], 05/13/2023 12:10:51 05/13/20 23 05/13/2023 CMP (FEMA LE) sodium 138.0 mmol/ L 136.0- 145.0 Not Available [facility] [address] [place] [address] [facility] 1, [place], [address], 05/13/2023 12:10:51 05/13/2005/13/2023 CMP (FEMA LE) potassium 4.4 mmol/ L 3.5-5. 1 Not Available [facility] [address] [facility], [place], [address], 05/13/2023 12:10:51 05/13/20 23 05/13/2023 CMP (FEMA LE) chloride 107.0 mmol/ L 98.0-1 10.0 normal Not Available [facility] [address] [facility], [place], [address], 05/13/2023 12:10:51 05/13/20 23 05/13/2023 CMP (FEMA LE) C02 22.0 mmol/ L 22.0-3 1.0 Not Available [facility] [address] [facility], [place], [address], 05/13/2023 12:10:51 05/13/20 23 05/13/2023 CMP (FEMA LE) anion gap 9.0 calc Not Available [facility] [address] [place] [address] [facility] 1, [place], [address], 05/13/2023 12:10:51 05/13/2005/13/2023 CMP (FEMA LE) osmolality 282.2 calc Not Available [facility] [address] [facility] 1, [place], [address], 05/13/2023 12:10:51 05/13/20 23 05/13/2023 LIPID PROFI LE (FEMA LE) cholesterol 162.0 mg/dL 0.0-20 0.0 Not Available [facility] [address] [facility] 1, [place], [address], 05/13/2023 12:10:52 05/13/20 23 05/13/2023 LIPID PROFI LE (FEMA LE) trig 54.0 mg/dL 0.0-15 0.0 Not Available [facility] [address] [facility] 1, [place], [address], 05/13/2023 12:10:52 05/13/20 23 05/13/2023 LIPID PROFI LE (FEMA LE) HDL - direct 70.0 mg/dL >40.0 Not Available [facility] [address] [facility] 1, [place], [address], 05/13/2023 12:10:52 05/13/20 23 05/13/2023 LIPID PROFI LE (FEMA LE) VLDL - direct 10.8 mg/dL Not Available [facility] [address] [facility] 1, [place], [address], 05/13/2023 12:10:52 05/13/20 23 05/13/2023 LIPID PROFI LE (FEMA LE) LDL - direct 81.2 mg/dL 0.0-13 0.0 Not Available [facility] [address] [facility] 1, [place], [address], 05/13/2023 12:10:52 05/13/20 23 05/13/2023 TSH, serum or plasm a TSH 2.45 uIU/m L 0.49-3 .82 Not Available [facility] ([facility]) [address] [place], [address], 05/13/2023 10:13:38 12/21/19 24 12/21/2023 HbA1c (hemo globi n A1c), blood HbA1C 5.2 Not Available [facility] ([facility]) [address] [place], [address], 12/21/2023 10:10:23 05/31/20 24 05/31/2024 CBC WBC 7.6 x10 4.0-10 .5 Not Available [facility] [address] [facility], [place], [address], 05/31/2024 15:07:10 05/31/2005/31/2024 CBC RBC 4.03 x10 3.50-5 .50 Not Available [facility] [address] [facility], [place], [address], 05/31/2024 15:07:10 05/31/20 24 05/31/2024 CBC HGB 12.9 g/dL 12.0-1 6.0 Not Available [facility] [address] [facility] 1, [place], [address], 05/31/2024 15:07:10 05/31/20 24 05/31/2024 CBC HCT 37.0 % 37.0-4 7.0 Not Available [facility] [address] [facility], [place], [address], 05/31/2024 15:07:10 05/31/20 24 05/31/2024 CBC MCV 91.7 fL 80.0-9 9.9 Not Available [facility] [address] [facility], [place], [address], 05/31/2024 15:07:10 05/31/20 24 05/31/2024 CBC MCH 32.1 pg 27.0-3 2.0 high Not Available [facility] [address] [facility], [place], [address], 05/31/2024 15:07:10 05/31/20 24 05/31/2024 CBC MCHC 34.9 g/dL 32.0-3 6.0 Not Available [facility] [address] [facility] 1, [place], [address], 05/31/2024 15:07:10 05/31/20 24 05/31/2024 CBC RDW 13.7 % 11.5-1 4.5 Not Available [facility] [address] [facility], [place], [address], 05/31/2024 15:07:10 05/31/20 24 05/31/2024 CBC plt 261.3 x10 140.0- 451.0 Not Available [facility] [address] [place] [facility], [place], [address], 05/31/2024 15:07:10 05/31/20 24 05/31/2024 CBC lymphocytes % 18.1 % 20.0-5 0.0 low Not Available [facility] [address] [place] [address] [facility] 1, [place], [address], 05/31/2024 15:07:10 05/31/20 24 05/31/2024 CBC granulcytes % 75.9 % 30.0-7 0.0 high Not Available [facility] [address] [place] [address] [facility], [place], [address], 05/31/2024 15:07:10 05/31/20 24 05/31/2024 CBC monocytes % 5.4 % 2.0-16 .0 Not Available [facility] [address] [facility], [place], [address], 05/31/2024 15:07:10 05/31/20 24 05/31/2024 CBC granulcytes# 5.7 x10 Not Kori ilable [facility] [address] [address] [facility] 1, [place], [address], 05/31/2024 15:07:10 05/31/20 24 05/31/2024 CBC lymphocytes # 1.4 x10 Not Available [facility] [address] [address] [facility], [place], [address], 05/31/2024 15:07:10 05/31/20 24 05/31/2024 CBC monocytes # 0.4 x10 Not Avai lable [facility] [address] [place] [facility], [place], [address], 05/31/2024 15:07:10 05/31/20 24 05/31/2024 CMP (FEMA LE) glucose 101.0 mg/dL 60.0-9 9.0 high Not Available [facility] [address] [facility], [place], [address], 05/31/2024 15:27:53 05/31/20 24 05/31/2024 CMP (FEMA LE) BUN (blood urea nitrogen) 8.0 mg/dL 10.0-2 6.0 low Not Available [facility] [address] [facility], [place], [address], 05/31/2024 15:27:53 05/31/20 24 05/31/2024 CMP (FEMA LE) creatinine (serum) 0.8 mg/dL 0.4-1. 5 Not Available [facility] [address] [facility], [place], [address], 05/31/2024 15:27:53 05/31/20 24 05/31/2024 CMP (FEMA LE) BUN/creatini ne ratio 10.00 ratio Not Available [facility] [address] [place] [address] [facility] 1, [place], [address], 05/31/2024 15:27:53 05/31/20 24 05/31/2024 CMP (FEMA LE) eGFR calculated 84.9 Not Available [facility] [address] [address] [facility], [place], [address], 05/31/2024 15:27:53 05/31/20 24 05/31/2024 CMP (FEMA LE) total protein 7.5 g/dL 6.0-8. 5 Not Available [facility] [address] [place] [facility], [place], [address], 05/31/2024 15:27:53 05/31/20 24 05/31/2024 CMP (FEMA LE) total bilirubin 1.0 mg/dL 0.2-1. 3 Not Available [facility] [address] [place] [facility], [place], [address], 05/31/2024 15:27:53 05/31/20 24 05/31/2024 CMP (FEMA LE) albumin 4.6 g/dL 3.5-5. 5 Not Available [facility] [address] [place] [facility], [place], [address], 05/31/2024 15:27:53 05/31/20 24 05/31/2024 CMP (FEMA LE) globulin 2.9 calc Not Available [facility] [address] [facility], [place], [address], 05/31/2024 15:27:53 05/31/20 24 05/31/2024 CMP (FEMA LE) AST (SGOT) 46.0 U/L 0.0-46 .0 Not Available [facility] [address] [facility], [place], [address], 05/31/2024 15:27:53 05/31/20 24 05/31/2024 CMP (FEMA LE) altv (SGPT) 164.0 U/L 13.0-6 9.0 abnormal Not Available [facility] [address] [facility], [place], [address], 05/31/2024 15:27:53 05/31/20 24 05/31/2024 CMP (FEMA LE) A/G ratio 1.6 ratio Not Available [facility] [address] [place] [address] [facility], [place], [address], 05/31/2024 15:27:53 05/31/20 24 05/31/2024 CMP (FEMA LE) ALP phos 129.0 U/L 30.0-1 40.0 normal Not Available [facility] [address] [facility], [place], [address], 05/31/2024 15:27:53 05/31/20 24 05/31/2024 CMP (FEMA LE) calcium 10.1 mg/dL 8.4-10 .5 Not Available [facility] [address] [facility], [place], [address], 05/31/2024 15:27:53 05/31/20 24 05/31/2024 CMP (FEMA LE) sodium 139.0 mmol/ L 136.0- 145.0 Not Available [facility] [address] [place] [facility], [place], [address], 05/31/2024 15:27:53 05/31/20 24 05/31/2024 CMP (FEMA LE) potassium 4.1 mmol/ L 3.5-5. 1 Not Available [facility] [address] [place] [address] [facility] 1, [place], [address], 05/31/2024 15:27:53 05/31/20 24 05/31/2024 CMP (FEMA LE) chloride 103.0 mmol/ L 98.0-1 10.0 normal Not Available [facility] [address] [facility], [place], [address], 05/31/2024 15:27:53 05/31/20 24 05/31/2024 CMP (FEMA LE) C02 29.0 mmol/ L 22.0-3 1.0 Not Available [facility] [address] [facility], [place], [address], 05/31/2024 15:27:53 05/31/20 24 05/31/2024 CMP (FEMA LE) anion gap 7.0 calc Not Available [facility] [address] [place] [facility], [place], [address], 05/31/2024 15:27:53 05/31/20 24 05/31/2024 CMP (FEMA LE) osmolality 285.7 calc Not Available [facility] [address] [place] [address] [facility] 1, [place], [address], 05/31/2024 15:27:53 05/31/20 24 05/31/2024 LIPID PROFI LE (FEMA LE) cholesterol 174.0 mg/dL 0.0-20 0.0 Not Available [facility] [address] [place] [facility], [place], [address], 05/31/2024 15:27:56 05/31/20 24 05/31/2024 LIPID PROFI LE (FEMA LE) trig 88.0 mg/dL 0.0-15 0.0 Not Available [facility] [address] [place] [address] [facility], [place], [address], 05/31/2024 15:27:56 05/31/20 24 05/31/2024 LIPID PROFI LE (FEMA LE) HDL - direct 81.0 mg/dL >40.0 Not Available [facility] [address] [facility], [place], [address], 05/31/2024 15:27:56 05/31/20 24 05/31/2024 LIPID PROFI LE (FEMA LE) VLDL - direct 17.6 mg/dL Not Available [facility] [address] [facility], [place], [address], 05/31/2024 15:27:56 05/31/20 24 05/31/2024 LIPID PROFI LE (FEMA LE) LDL - direct 75.4 mg/dL 0.0-13 0.0 Not Available [facility] [address] [facility], [place], [address], 05/31/2024 15:27:56 05/31/20 24 05/31/2024 TSH TSH 4.35 uIU/m L 0.49-3 .82 high Not Available [facility] [address] [facility], [place], [address], 05/31/2024 16:15:25 05/31/20 24 06/01/2024 VITAM IN B12/F OLATE , SERUM PANEL vitamin B12 351 pg/mL 200-11 00 normal Pleas e Note: Altho ugh the refer ence range for vitam in B12 is 200-1 100 pg/mL , it has been repor samia that betwe en 5 and 10% of patie nts with value s betwe en 200 and 400 pg/mL may exper ience neuro psych iatri c and hemat ologi c abnor malit ies due to occul t B12 defic iency ; less than 1% of patie nts with value s above 400 pg/mL will have sympt oms. Not Available [facility] [address] [place], [address], 06/01/2024 09:36:33 05/31/20 24 06/01/2024 VITAM IN B12/F OLATE , SERUM PANEL folate, serum 18.9 NG/mL normal Refer ence Range Low: <3.4 Borde rline : 3.4-5 .4 Yecenia l: >5.4 Not Available [email or web address] [facility] [address] [place], [address], 06/01/2024 09:36:33 05/31/20 24 06/01/2024 VITAM IN D,25- OH,TO HARLEY,I A vitamin D,25-oh,tota l,ia 33 NG/mL 30-100 normal Vitam in D Statu s 25-OH Vitam in D: Defic iency : <20 ng/mL Insuf ficie ncy: 20 - 29 ng/mL Optim al: > or = 30 ng/mL For 25-OH Vitam in D testi ng on patie nts on D2-kamara pplem entat ion and patie nts for whom quant itati on of D2 and D3 fract ions is requi red, the [facility] Ass[employer] eD(TM ) 25-OH VIT D, (D2,D 3), LC/MS /MS is recom elicia d: order code 86180 (peter ents >2yrs ). See Note 1 Note 1 For addit ional infor juanita de luna e refer to http: //[facility] josephine Hobbs stDia gnost ics.c om/fa q/FAQ 199 (This link is being provi ded for infor micaela quezada/ annmarie goncalveso ses only. ) Not Available [facility] [address] [place], [address], 06/01/2024 09:36:34 06/14/20 24 06/14/2024 LIVER PANEL (FEMA LE) total protein 7.0 g/dL 6.0-8. 5 Not Available [facility] [address], [place], [address], 06/14/2024 15:27:54 06/14/20 24 06/14/2024 LIVER PANEL (FEMA LE) total bilirubin 2.6 mg/dL 0.2-1. 3 high Not Available [facility] [address], [place], [address], 06/14/2024 15:27:54 06/14/20 24 06/14/2024 LIVER PANEL (FEMA LE) conj. bilirubin (direct) 0.00 mg/dL 0.00-0 .40 Not Available [facility] [address] [facility] [address], [place], [address], 06/14/2024 15:27:54 06/14/20 24 06/14/2024 LIVER PANEL (FEMA LE) albumin 4.3 g/dL 3.5-5. 5 Not Available [facility] [address] [facility] [address], [place], [address], 06/14/2024 15:27:54 06/14/20 24 06/14/2024 LIVER PANEL (FEMA LE) AST (SGOT) 149.0 U/L 0.0-46 .0 high Not Available [facility] [address] [facility], [place], [address], 06/14/2024 15:27:54 06/14/20 24 06/14/2024 LIVER PANEL (FEMA LE) altv (SGPT) 133.0 U/L 13.0-6 9.0 abnormal Not Available [facility] [address] [facility] 1, [place], [address], 06/14/2024 15:27:54 06/14/20 24 06/14/2024 LIVER PANEL (FEMA LE) ALP phos 98.0 U/L 30.0-1 40.0 normal Not Available [facility] [address] [facility] 1, [place], [address], 06/14/2024 15:27:54 06/14/20 24 06/14/2024 TSH TSH 0.98 uIU/m L 0.49-3 .82 normal Not Available [facility] [address] [facility], [place], [address], 06/14/2024 15:59:23 06/15/20 24 06/16/2024 HEPAT ITIS PANEL , ACUTE W/REF KT TO CONFI RMATI ON hepatitis A IgM NON-RE ACTIVE non-re active normal For addit ional infor juanita de luna e refer to http: //[facility] josephine hobbs stdia gnost ics.c om/fa q/FAQ 202 (This link is being provi ded for infor matio nal/ educa cam l purpo ses only. ) Not Available [email or web address] [address] [place], [address], 06/16/2024 05:46:07 06/15/20 24 06/16/2024 HEPAT ITIS PANEL , ACUTE W/REF KT TO CONFI RMATI ON hepatitis B surface antigen NON-RE ACTIVE non-re active normal For addit ional juanita bay refer to http: //mani hobbs stdia gnost ics.c om/fa q/FAQ 202 (This link is being provi ded for infor matio nal/ educa cam l purpo ses only. ) Not Available [facility] [address] [place], [address], 06/16/2024 05:46:07 06/15/20 24 06/16/2024 HEPAT ITIS PANEL , ACUTE W/REF KT TO CONFI RMATI ON hepatitis B core antibody (IgM) NON-RE ACTIVE non-re active normal For addit ional juanita bay e refer to http: //mani hobbs stdia gnost ics.c om/fa q/FAQ 202 (This link is being provi ded for infor matio nal/ educa cam l purpo ses only. ) Not Available [facility] [address], [address], 06/16/2024 05:46:07 06/15/20 24 06/16/2024 HEPAT ITIS PANEL , ACUTE W/REF KT TO CONFI RMATI ON hepatitis C antibody NON-RE ACTIVE non-re active normal HCV antib clarita was non-r eacti ve. There is no labor atory evide nce of HCV infec tion. In most cases , no furth er actio n is requi red. Howev er, if recen t HCV expos ure is suspe cted, a test for HCV RNA (test code 67924 ) is sugge sted. For addit ional infor micaela kirkland pleas e refer to http: //[facility] stdia gnost ics.c om/fa q/FAQ 22v1 (This link is being provi ded for infor micaela nal/ educa cam l purpo ses only. ) Not Available [facility] [address] [place], [address], 06/16/2024 05:46:07 06/15/20 24 06/16/2024 GGT GGT 52 U/L 3-50 high Not Available [facility] [address] [place], [address], 06/16/2024 05:46:08 06/19/20 24 06/19/2024 CMP (FEMA LE) glucose 98.0 mg/dL 60.0-9 9.0 Not Available [facility] [address], [address], 06/19/2024 13:19:20 06/19/20 24 06/19/2024 CMP (FEMA LE) BUN (blood urea nitrogen) 8.0 mg/dL 10.0-2 6.0 low Not Available [facility] [address] [facility] 1, [place], [address], 06/19/2024 13:19:20 06/19/20 24 06/19/2024 CMP (FEMA LE) creatinine (serum) 0.6 mg/dL 0.4-1. 5 Not Available [facility] [address] [facility] 1, [place], [address], 06/19/2024 13:19:20 06/19/20 24 06/19/2024 CMP (FEMA LE) BUN/creatini ne ratio 13.33 ratio Not Available [facility] [address] [facility], [place], [address], 06/19/2024 13:19:20 06/19/20 24 06/19/2024 CMP (FEMA LE) eGFR calculated 118.3 Not Available [facility] [address] [facility], [place], [address], 06/19/2024 13:19:20 06/19/20 24 06/19/2024 CMP (FEMA LE) total protein 7.3 g/dL 6.0-8. 5 Not Available [facility] [address] [facility], [place], [address], 06/19/2024 13:19:20 06/19/20 24 06/19/2024 CMP (FEMA LE) total bilirubin 1.2 mg/dL 0.2-1. 3 Not Available [facility] [address] [facility], [place], [address], 06/19/2024 13:19:20 06/19/20 24 06/19/2024 CMP (FEMA LE) albumin 4.6 g/dL 3.5-5. 5 Not Available [facility] [address] [facility] 1, [place], [address], 06/19/2024 13:19:20 06/19/20 24 06/19/2024 CMP (FEMA LE) globulin 2.7 calc Not Available [facility] [address] [facility] 1, [place], [address], 06/19/2024 13:19:20 06/19/20 24 06/19/2024 CMP (FEMA LE) AST (SGOT) 37.0 U/L 0.0-46 .0 Not Available [facility] [address] [facility], [place], [address], 06/19/2024 13:19:20 06/19/20 24 06/19/2024 CMP (FEMA LE) altv (SGPT) 90.0 U/L 13.0-6 9.0 abnormal Not Available [facility] [address] [facility] 1, [place], [address], 06/19/2024 13:19:20 06/19/20 24 06/19/2024 CMP (FEMA LE) A/G ratio 1.7 ratio Not Available [facility] [address] [facility] 1, [place], [address], 06/19/2024 13:19:20 06/19/20 24 06/19/2024 CMP (FEMA LE) ALP phos 133.0 U/L 30.0-1 40.0 normal Not Available [facility] [address] [facility], [place], [address], 06/19/2024 13:19:20 06/19/20 24 06/19/2024 CMP (FEMA LE) calcium 9.7 mg/dL 8.4-10 .5 Not Available [facility] [address] [facility] 1, [place], [address], 06/19/2024 13:19:20 06/19/20 24 06/19/2024 CMP (FEMA LE) sodium 139.0 mmol/ L 136.0- 145.0 Not Available [facility] [address] [facility] [address] 1, [place], [address], 06/19/2024 13:19:20 06/19/20 24 06/19/2024 CMP (FEMA LE) potassium 3.8 mmol/ L 3.5-5. 1 Not Available [facility] [address] [facility] [address] 1, [place], [address], 06/19/2024 13:19:20 06/19/20 24 06/19/2024 CMP (FEMA LE) chloride 106.0 mmol/ L 98.0-1 10.0 normal Not Available [facility] [address] [facility] 1, [place], [address], 06/19/2024 13:19:20 06/19/20 24 06/19/2024 CMP (FEMA LE) C02 26.0 mmol/ L 22.0-3 1.0 Not Available [facility] [address] [facility] 1, [place], [address], 06/19/2024 13:19:20 06/19/20 24 06/19/2024 CMP (FEMA LE) anion gap 7.0 calc Not Available [facility] [address] [facility] 1, [place], [address], 06/19/2024 13:19:20 06/19/20 24 06/19/2024 CMP (FEMA LE) osmolality 285.6 calc Not Available [facility] [address] [facility] 1, [place], [address], 06/19/2024 13:19:20 07/17/19 25 07/17/2024 TSH TSH 1.12 uIU/m L 0.49-3 .82 Not Available [facility] [address] [facility] 1, [place], [address], 07/17/2024 09:47:42 07/17/19 25 07/17/2024 LIVER PANEL (FEMA LE) total protein 7.7 g/dL 6.0-8. 5 Not Available [facility] [address] [facility] 1, [place], [address], 07/17/2024 10:15:20 07/17/19 25 07/17/2024 LIVER PANEL (FEMA LE) total bilirubin 2.4 mg/dL 0.2-1. 3 high Not Available [facility] [address] [facility], [place], [address], 07/17/2024 10:15:20 07/17/19 25 07/17/2024 LIVER PANEL (FEMA LE) conj. bilirubin (direct) 0.00 mg/dL 0.00-0 .40 Not Available [facility] [address] [facility], [place], [address], 07/17/2024 10:15:20 07/17/19 25 07/17/2024 LIVER PANEL (FEMA LE) albumin 4.7 g/dL 3.5-5. 5 Not Available [facility] [address] [facility], [place], [address], 07/17/2024 10:15:20 07/17/19 25 07/17/2024 LIVER PANEL (FEMA LE) AST (SGOT) 37.0 U/L 0.0-46 .0 Not Available [facility] [address] [facility], [place], [address], 07/17/2024 10:15:20 07/17/19 25 07/17/2024 LIVER PANEL (FEMA LE) altv (SGPT) 67.0 U/L 13.0-6 9.0 normal Not Available [facility] [address] [facility] 1, [place], [address], 07/17/2024 10:15:20 07/17/19 25 07/17/2024 LIVER PANEL (FEMA LE) ALP phos 99.0 U/L 30.0-1 40.0 normal Not Available [facility] [address] [facility], [place], [address], 07/17/2024 10:15:20 06/16/20 24 06/16/2024 , dede hernández No observ ation record ed. [facility] (Scheduling Orders) [address] [place], [address], 06/16/2024 15:07:05 Result Notes None recorded. Problems Name Problem SNOMED Code Status Onset Date Resolution Date Notes Provider Name and Address Organization Details Recorded Time Diverticulosis of colon 626129788 Active 2024 SUJIT dejesus [facility] 18:02:19 Polyp of cecum 177070129 Active 2024 SUJIT dejesus [facility] 5 18:02:53 Anxiety disorder 654863636 Active 2024 SUJIT dejesus [facility] 5 18:03:24 Problem Notes None recorded. Procedures Surgical History Date Name Laterality Status Provider Name and Address Organization Details Recorded Time 5 CT of head completed [facility] 08/15/2024 12:01:[address] of head and neck completed [facility] 08/15/2024 12:02:28 5 endoscopy completed [facility] 10/01/2024 17:55:56 5 colonoscopy completed [facility] 10/01/2024 18:01:46 4 US scan of gallbladder completed [facility] 06/16/2024 12:23:[address] of abdomen completed [facility] 06/15/2024 10:14:18 Imaging Results None recorded. Procedure Notes None recorded. Medical Equipment None Reported. Allergies No known drug allergies Medications Name Sig Start Date Stop Date Status Note LastModified by Organization Details LastModified Time doxycycli ne hyclate 100 mg capsule take 1 capsule BY MOUTH TWICE DAILY for 10 days 05/31 completed Not Available Not Available Not Available ketoconaz ole 2 % shampoo USE BODY WASH. LEAVE ON FOR 10-20 MINUTES BEFORE RINSING. USE 2-3 TIMES A WEEK 04/10 completed Not Available Not Available Not Available azithromy ashok 250 mg tablet TAKE 2 TABLETS BY MOUTH TODAY, THEN TAKE 1 TABLET DAILY ON DAYS 2-5 04/11 completed Not Available Not Available Not Available tizanidin e 4 mg tablet TAKE 1 TABLET BY MOUTH 3 TIMES A DAY NEEDED active Not Available Not Available No t Available benzonata te 200 mg capsule take 1 capsule BY MOUTH THREE TIMES DAILY NEEDED FOR cough 05/13 completed Not Available Not Available Not Available tretinoin 0.025 % topical cream APPLY TO ACNE LESIONS ONCE DAILY BEFORE BEDTIME IN THE EVENINGS 04/10 completed Not Available Not Available Not Available minocycli ne 100 mg capsule take 1 capsule BY MOUTH TWICE DAILY with food FOR TWO weeks. if still flare continue FOR TWO more weeks 05/31 completed Not Available Not Available Not Available sucralfat e 1 gram tablet TAKE 1 TABLET BY MOUTH TWICE DAILY active Not Available Not Available No t Available prednison e 20 mg tablet TAKE 1 TABLET BY MOUTH TWICE DAILY for 5 days 04/11 completed Not Available Not Available Not Available Zyrtec 10 mg tablet Take 1 tablet every day by oral route. active Not Available Not Available No t Available prednisol one acetate 1 % eye drops,clarice pension instill 1 drop in right eye FOUR TIMES DAILY for 7 days 05/31 completed Not Available Not Available Not Available levothyro xine 50 mcg tablet Take 1 tablet every day by oral route for 90 days, for Thyroid. active Not Available Not Available No t Available pantopraz ole 40 mg tablet,de layed release TAKE 1 TABLET BY MOUTH EVERY DAY 04/10 completed Not Available Not Available Not Available triamcino lone acetonide 0.1 % topical ointment APPLY TWICE DAILY TO RASH ON UPPER LEFT ARM 05/13 completed Not Available Not Available Not Available omeprazol e 20 mg capsule,d elayed release Take 1 capsule every day by oral route for 90 days. 2023 active Not Available Not Available Not Avai lable monteluka st 10 mg tablet TAKE 1 TABLET BY MOUTH EVERY DAY active Not Available Not Available No t Available hydroxyzi ne HCl 25 mg tablet TAKE 1 TABLET BY MOUTH TWICE DAILY NEEDED FOR 30 DAYS active Not Available Not Available No t Available scopolami ne 1 mg over 3 days transderm al patch APPLY ONE PATCH transder marcello every 72 hours FOR motion sickness 04/10 completed Not Available Not Available Not Available methylpre dnisolone 4 mg tablets in a dose pack TAKE 6 TABLETS ON DAY 1 DIRECTED ON PACKAGE AND DECREASE BY 1 TAB EACH DAY FOR A TOTAL OF 6 DAYS 05/31 completed Not Available Not Available Not Available amoxicill in 875 mg-potass ium clavulana te 125 mg tablet TAKE 1 TABLET BY MOUTH TWICE DAILY for 10 days 04/11 completed Not Available Not Available Not Available minocycli ne 100 mg tablet Take 1 tablet every 12 hours by oral route. active Not Available Not Available No t Available nitrofura ntoin monohydra te/macroc rystals 100 mg capsule take 1 capsule BY MOUTH TWICE DAILY for 7 days 05/13 completed Not Available Not Available Not Available Mirena 05/13 completed 0; Recorded 08/29/19 23 10:13AM by Sujit Rubio CMT, Office Visit; Not Available Not Available Not Available budesonid e-formote rol HFA 160 mcg-4.5 mcg/actua tion aerosol inhaler INHALE TWO PUFFS TWICE DAILY active Not Available Not Available No t Available GaviLyte- G 236 gram-22.7 4 gram-6.74 gram-5.86 gram oral solution ON 07/31 at 6pm drink ONE-HALF of bowel prep jug over TWO hours. ON 08/01 at 715am drink remainin g ONE-HALF bowel prep jug over TWO hours UNTIL finished 10/01 completed Not Available Not Available Not Available Vitals Date Recorded Body height Body mass index (BMI) Body weight Oxygen saturation Oxygen saturation in Arterial blood by Pulse oximetry Heart rate Systolic And Diastolic Provider Name and Address Organization Details Last Updated DateTime 4 177.8 cm 21.7 kg/m2 33502.4 5 g 97 % 97 % 80 /min 106/62 mm[Hg] SUJIT RUBIO [facility] 4 09:13:31 Date Recorded Body height Body mass index (BMI) Body weight Oxygen saturation Oxygen saturation in Arterial blood by Pulse oximetry Heart rate Respiratory rate Systolic And Diastolic Provider Name and Address Organization Details Last Updated DateTime 3 177.8 cm 21.7 kg/m2 63694.4 5 g 99 % 99 % 80 /min 20 /min 110/70 mm[Hg] SUJIT RUBIO [facility] 3 10:07:00 Date Recorded Body height Body mass index (BMI) Body weight Oxygen saturation Oxygen saturation in Arterial blood by Pulse oximetry Heart rate Respiratory rate Body temperature Systolic And Diastolic Provider Name and Address Organization Details Last Updated DateTime 4 177.8 cm 22.5 kg/m2 05271 g 98 % 98 % 68 /min 16 /min 98.2 [degF] 110/60 mm[Hg] Jazzminenasir Ayers [facility] 4 14:25:25 Social History Question Answer Notes LastModified by [employer] Details LastModified Time Tobacco Smoking Status Never Smoker SUJIT RUBIO [facility] 05/13/2023 10:09:05 How Many Children Do You Have? -1 [email or web address] Information not available 04/10/2024 What Is Your Relationship Status? 09/28/2023 Passed From Cancer [email or web address] Information not available 04/10/2024 Sex: Unknown Functional Status Question Answer Note LastModified by [employer] Details LastModified Time Do you use any illicit or recreational drugs? No Information not available 05/13/2023 What is your level of alcohol consumption? None [email or web address] Information not available 05/13/2023 Are you currently employed? Yes [email or web address] Information not available 05/13/2023 Are you able to walk? YESWOREST [email or web address] Information not available 04/10/2024 Are you able to care for yourself? Yes [email or web address] Information n ot available 05/13/2023 Mental Status None recorded. Family History Relationship Description Onset Age of this Age Resolved Age Notes LastModified by Organization Details LastModified Time Mother Malignant neoplasm of urinary bladder [email or web address] Not available 06/15 10:12:28 Father Hypothyroidi sm [email or web address] Not available 06/15 10:12:37 Medical History Condition Response Anxiety Disorder Y Gynecological HistoryNo gynecological history recorded. Obstetrics History GPAL:G 0 P 0 0 0 0 Immunizations Vaccine Type Date Status Note Provider Nam e and Address Organization Details Recorded Time Influenza, split virus, trivalent, preservative 6 completed MISTI GUARDADO, [facility] [address] [place] [address], [phone], [facility] 05/13/2023 10:17:53 COVID-19, mRNA, LNP-S, PF, 100 mcg/0.5mL dose or 50 mcg/0.25mL dose 1 completed MISTI GUARDADO [address], [address], [facility] 05/13/2023 10:17:53 COVID-19, mRNA, LNP-S, PF, 100 mcg/0.5mL dose or 50 mcg/0.25mL dose 1 completed MISTI GUARDADO [address], [address], [facility] 05/13/2023 10:17:53 Influenza, split virus, quadrivalent, PF 1 completed MISTI GUARDADO [facility] [address] [place] [address], [phone], [facility] 05/13/2023 10:17:53 Influenza, split virus, quadrivalent, PF 2 completed MISTI GUARDADO, [facility] [address] [place] [address], [phone], [facility] 05/13/2023 10:17:53 Influenza, split virus, quadrivalent, PF 3 completed MISTI GUARDADO [facility] [address] [place], [address], [facility] 05/13/2023 10:17:53 Past Encounters Encounter ID Performer Location Encounter Start Date Encounter Closed Date Diagnosis/Indication Diagnosis SNOMED-CT Code Diagnosis ICD10 Code Diagnosis Note [id number] MISTI GUARDADO [facility] ([facility]) [address] [place] [address] 05/13/2023 09:56:56 05/13/2023 11:06:01 Abdominal pain 63386725 R10.9 Heartburn 90691044 R12 [id number] MISTI GUARDADO [facility] ([facility]) [address] [place] [address] 04/11/2024 09:03:32 04/11/2024 10:05:35 Persistent cough 059423372 R05.3 [id number] MISTI GUARDADO [facility] ([facility]) [address] [place] [address] 05/31/2024 13:43:24 05/31/2024 15:06:29 Fatigue 93475213 R53.83 Acid reflux 813041046 K2 1.9 Generalize d anxiety disorder 78720178 F41.1 Sensation of foreign body in throat 8519023193 10775 R09.A2 [id number] MISTI GUARDADO [facility] ([facility]) [address] [place] [address] 06/19/2024 12:41:52 06/20/2024 10:45:13 Liver enzymes level above reference range 060593322 R74.01 Health Concerns Section Related Observation LastModified by Organization Detai ls LastModified Time None Recorded Concern Status LastModified by Organization Details LastModified Time None Recorded Advance Directives Directive None Recorded Payers Insurance Date Sequence Insurance Name Policy Number Policy Simeon Covered Member ID Simeon Member ID Guarantor Name 07/17/2024 1 [employer] [id number] Debbi Ellis [id number] 1 [id number] Debbi Ellis Notes Date Note Type Note Provider Name and Address Organization Details Recorded Time 05/13/2023 text/html Abdominal PainReported bypatient.Location: generalized Quality:bloating;fu llness Severity:moderate;w orse Associated Symptoms:no fever;heartburn Previous Tests, Treatment and/or Diagnostic Procedures:OTC medicationsReflux/G ERDReported bypatient.Duration: present for 1-6 months Context:non-smoker; no drug/alcohol abuse Associated Symptoms:no decreased appetite; no weight loss BONITA DRAPER [address] [place], [address], [facility] 05/13/2023 10:38:29 04/11/2024 text/html CoughReported bypatient.Quality:p roductive; [place] green color Severity:moderate Duration:subacute (3-8 weeks) Context:non-smoker Associated Symptoms:no fever;chest wall tenderness;muscle pain;tiredness BONITA DRAPER [address] [place] [address], [phone], [facility] 04/11/2024 09:38:12 05/31/2024 text/html CoughReported bypatient.Quality:d ry Severity:moderate Duration:constant Onset/Timing:gradua l Context:non-smoker patient is here today for a cough that she has had for the last 2 months even with Antibiotics and steroid's, patient said that she feels like her body is achy and she is tired all the time. BONITA DRAPER [address] [place], [address], [facility] 05/31/2024 16:37:17 OBGyn Episode No OBEpisode recorded.
[2025-01-08 20:55] VITALS: BP 120/71; PULSE 69; RESP 20; TEMP 37; O2SAT 100
[2025-01-08 21:34] LABS: Hematocrit 36.8 % (36-47); Hemoglobin 12.40 g/dL (11.27-16.99); Mean Corpuscular HGB Conc 33.7 g/dL (30-55); Mean Corpuscular Hemoglobin 30.9 pg (27-33); Mean Corpuscular Volume 91.8 fl (85-98); Nucleated Red Blood Cells % 0 %; Platelet Count 261 10^3/cmm (157-399); Red Blood Count 4.01 10^6/uL (3.85-5.65); White Blood Count 7.07 10^3/uL (3.29-11.43)
[2025-01-08 21:40] VITALS: BP 133/77; PULSE 63; RESP 16; O2SAT 100
--- NOTE | 2025-01-08 21:41 | ED_ITS ---
HPI - Chest Pain 2 General: Chief Complaint: Chest Pain Stated Complaint: chest tightness, numbness in hands and feet Time Seen by Provider: 01/08/25 21:27 History of Present Illness: 39-year-old female with a history of hyp othyroidism who presents to the emergency room with chest pain and tightness. This been going on for couple weeks. Says it worsened today. She complains of a right sided chest pain that radiates into her back. She has been on a thyroid medication and had some changes. Is also having some anxiety related to losing her . She had some mild shortness of breath. She also complains of a chronic cough Related Data Home Medications ?Medication ?Instructions ?Recorded ?Confirmed cetirizine 10 mg capsule (Zyrtec) 10 mg PO DAILY PRN a llergies 04/05/23 06/14/24 levonorgestrel (Mirena) 1 device intrauterine .Q8Y 1 06/14/24 hydroxyzine HCl 25 mg tablet 25 mg PO BID PRN Insomnia 06/14/24 06/14/24 minocycline 100 mg capsule 100 mg PO BID 06/14/2405/28 Previous Rx's ?Medication ?Instructions ?Recorded sucralfate 1 gram tablet (Carafate) 1 g PO BID #30 tab s 06/14/24 Allergies Allergy/AdvReac Type Severity Reaction Status Date / Time No Known Allergies Allergy Verified 03/20/24 14:15 Review of Systems 2 Narrative: Constitutional symptoms: Negative except as documented in HPI. Skin symptoms: Negative except as documented in HPI. Eye symptoms: Negative except as documented in HPI. ENMT symptoms: Negative except as documented in HPI. Respiratory symptoms: Negative except as documented in HPI. Cardiovascular symptoms: Negative except as documented in HPI. Gastrointestinal symptoms: Negative except as documented in HPI. Genitourinary symptoms: Negative except as documented in HPI. Musculoskeletal symptoms: Negative except as documented in HPI. Neurologic symptoms: Negative except as documented in HPI. Psychiatric symptoms: Negative except as documented in HPI. Endocrine symptoms: Negative except as documented in HPI. PFSH ED 2 PFSH: Social History Smoking and tobacco/nicotine status: never used tobacco/nicotine Second hand smoke exposure: No Alcohol intake: never Substance/Drug Use: never Physical Exam 2 Narrative: EXAM NARRATIVE: General: Alert, no acute distress. Skin: Warm, dry. Head: Normocephalic, atraumatic. Neck: Supple, trachea midline. Eye: Extraocular movements are intact. Ears, nose, mouth and throat: mucosa moist. Cardiovascular: Regular, Normal peripheral perfusion. Respiratory: Lungs are clear to auscultation, respirations are non-labored, breath sounds are equal, Symmetrical chest wall expansion. Gastrointestinal: Soft, Nontender, Non distended Musculoskeletal: Normal ROM, no deformity. Neurological: Alert and oriented, No focal neurological deficit observed. Psychiatric: Cooperative, appropriate mood & affect. Course 2 Vital Signs: Vital signs: Vital Signs Temperature 98.6 F 01/08/25 20:55 Pulse Rate 62 01/08/25 22:00 Respiratory Rate 16 01/08/25 22:00 Blood Pressure 106/67 01/08/25 22:00 Pulse Oximetry 99 01/08/25 22:00 Oxygen Delivery Me thod Room Air 01/08/25 22:00 MDM - Chest Pain Medical Decision Making Differential diagnosis for patient with chest pain includes but is not limited to and based on the above HPI, review of systems and physical exam: Pneumonia. unstable angina. angina. Acute coronary syndrome / [place]. Pulmonary embolism. Costochondritis / musculoskeletal. Pleurisy. Pericarditis. Esophageal spasm. Pancreatis. Cholecystitis. Orders placed to evaluate differential diagnosis based on the above differential, HPI and physical exam EKG: Time 2051. Rate 63. Normal sinus rhythm, No ST-T changes, no ectopy, normal IL & QRS intervals, This was reviewed and interpreted by myself the ER physician at 2056 Lab Review: Laboratory results were reviewed and interpreted by myself the emergency room physician. No leukocytosis. No anemia. No renal failure. Serial troponins are negative. CTA chest with PE protocol: No acute process. No PE. This was reviewed and interpreted by myself the emergency room physician. I also reviewed the radiology report. I reviewed the patient's medical record. Reexamination: Patient remained stable. No increased work of breathing. No altered mental status. No focal motor deficits. Assessment and plan: Noncardiac chest pain - Discharged home - Discussed plan with patient. Answered any questions. - Evaluation and treatment of this problem were appropriate in the emergency setting. Lab Data 01/08/25 21:07 01/08/25 21:07 Radiology Impressions Chest X-Ray 01/08/25 20:49 IMPRESSION: No acute findings. Chest CTA 01/08/25 22:32 IMPRESSION: No acute findings. Laboratory Results WBC 7.07 10^3/uL (3.29-11.43) 01/08/25 21:07 RBC 4.01 10^6/uL (3.85-5.65) 01/08/25 21:07 Hgb 12.40 g/dL (11.27-16.99) 01/08/25 21:07 Hct 36.8 % (36-47) 01/08/25 21:07 MCV 91.8 fl (85-98) 01/08/25 21:07 MCH 30.9 pg (27-33) 01/08/25 21:07 MCHC 33.7 g/dL (30-55) 01/08/25 21:07 RDW 11.9 % (12.1-15.1) L 01/08/25 21:07 Plt Count 261 10^3/cmm (157-399) 01/08/25 21:07 MPV 10.5 fL (7.4-10.4) H 01/08/25 21:07 Neut % (Auto) 74.2 % 01/08/25 21:07 Lymph % (Auto) 18.5 % 01/08/25 21:07 [place] % (Auto) 6.2 % 01/08/25 21:07 Eos % (Auto) 0.4 % 01/08/25 21:07 Baso % (Auto) 0.6 % 01/08/25 21:07 Neut # (Auto) 5.24 10^3/uL (1.8-7.7) 01/08/25 21:07 Lymph # (Auto) 1.3 10^3/uL (0.8-4.8) 01/08/25 21:07 [place] # (Auto) 0.4 10^3/uL (0.2-0.9) 01/08/25 21:07 Eos # (Auto) 0.0 10^3/uL (0.0-0.8) 01/08/25 21:07 Baso # (Auto) 0.0 10^3/uL (0.0-0.1) 01/08/25 21:07 Nucleated RBC % (auto) 0 % 01/08/25 21:07 Nucleated RBCs # 0.0 /100WBC 01/08/25 21:07 Sodium 140 mmol/L (136-145) 01/08/25 21:07 Potassium 3.9 mmol/L (3.5-5.1) 01/08/25 21:07 Chloride 105 mmol/L (98-107) 01/08/25 21:07 Carbon Dioxide 23 mmol/L (22-29) 01/08/25 21:07 Anion Gap 15.9 (5-19) 01/08/25 21:07 BUN 9 mg/dL (6-20) 01/08/25 21:07 Creatinine 0.7 mg/dL (0.5-0.9) 01/08/25 21:07 GFR Calculation 93.2 mL/min (90-130) 01/08/25 21:07 Glucose 103 mg/dL (65-115) 01/08/25 21:07 Calculated Osmolality 289 mOsm/kg (285-295) 01/08/25 21:07 Calcium 9.4 mg/dL (8.5-10.5) 01/08/25 21:07 Total Bilirubin 1.4 mg/dL (0.15-1.2) H 01/08/25 21:07 AST 18 U/L (0-32) 01/08/25 21:07 ALT 23 U/L (0-33) 01/08/25 21:07 Alkaline Phosphatase 89 U/L (35-105) 01/08/25 21:07 Troponin T Baseline < 6 ng/L (0-10) 01/08/25 21:07 Troponin T 120 Minute < 6.0 ng/L (0-10) 01/08/25 22:57 Delta Troponin T 0 ABS# (0-10) 01/08/25 22:57 Total Protein 7.0 g/dL (6.6-8.7) 01/08/25 21:07 Albumin 4.4 g/dL (3.5-5.2) 01/08/25 21:07 Globulin 2.6 g/dL (1.3-4.6) 01/08/25 21:07 Lipase 46 U/L (13-60) 01/08/25 21:07 HCG, Qual Negative (Negative) 01/08/25 21:07 All radiology interpretation(s) finalized by discharge Discharge Plan Discharge Patient Disposition: Home Clinical Impression: Non-cardiac chest pain Condition: Stable Prescriptions: No Action Zyrtec 10 mg capsule 10 mg PO DAILY PRN (Reason: allergies) Mirena 21 mcg/24 hours (8 yrs) 52 mg intrauterine device 1 device intrauterine .Q8Y minocycline 100 mg capsule 100 mg PO BID hydroxyzine HCl 25 mg tablet 25 mg PO BID PRN (Reason: Insomnia) sucralfate [Carafate] 1 gram tablet 1 g PO BID Qty: 30 0RF Discharge Orders: Discharge ED (Routine); Ordered 01/08/25 Ordered By: Bushra Mcgrath Referrals: Misti Alcantar FNP [Primary Care Provider, Unknown] Discharge Diet: Usual diet Discharge Activity: Increase activity as tolerated Patient Instructions: Noncardiac Chest Pain (ED), Opioid Safety, Pain Management, Patient Portal & [place] Instructions Activity Restrictions/Additional Instructions: Thank you for choosing [facility] for your healthcare needs today. You have been screened and evaluated and felt safe for discharge. Health conditions do change or evolve sometimes and as such it is important that you follow up with your Primary Doctor to be re checked, 3-5 days is a general good time frame for follow up. You are always welcome to return to the ED for re assessment if your symptoms are worsening or you have new concerns Print Language: Syriac Coding Level of Care Code ED [employer] for Tyler Sánchez
[2025-01-08 21:46] LABS: HCG, Serum Qual Negative (Negative)
[2025-01-08 21:50] LABS: Troponin(5th) Baseline < 6 ng/L (0-10)
[2025-01-08 21:52] LABS: Alanine Aminotransferase 23 U/L (0-33); Albumin Level 4.4 g/dL (3.5-5.2); Alkaline Phosphatase 89 U/L (35-105); Anion Gap 15.9 (5-19); Aspartate Amino Transferase 18 U/L (0-32); Blood Urea Nitrogen 9 mg/dL (6-20); Calcium 9.4 mg/dL (8.5-10.5); Carbon Dioxide 23 mmol/L (22-29); Chloride 105 mmol/L (98-107); Globulin 2.6 g/dL (1.3-4.6); Glucose 103 mg/dL (65-115); Lipase 46 U/L (13-60); Osmolality Calculated 289 mOsm/kg (285-295); Potassium 3.9 mmol/L (3.5-5.1); Sodium 140 mmol/L (136-145); Total Protein 7.0 g/dL (6.6-8.7)
[2025-01-08 22:00] VITALS: BP 106/67; PULSE 62; RESP 16; O2SAT 99
--- NOTE | 2025-01-08 22:32 | CTR_ITS ---
PROCEDURE INFORMATION: Exam: CTA Chest With Contrast Exam date and time: 01/08/2025 10:47 PM Age: 39 years old Clinical indication: Pain; Chest pressure; Additional info: Chest pain TECHNIQUE: Imaging protocol: Computed tomographic angiography of the chest with contrast. Exam focused on the arteries. 3D rendering (Not supervised by radiologist): MIP and/or 3D reconstructed images were created by the technologist. Radiation optimization: All CT scans at this facility use at least one of these dose optimization techniques: automated exposure control; mA and/or kV adjustment per patient size (includes targeted exams where dose is matched to clinical indication); or iterative reconstruction. Contrast material: OMNI 350; Contrast volume: 67 ml; Contrast route: INTRAVENOUS (IV); COMPARISON: CR (CHEST, ) 01/08/2025 9:05 PM RADIATION DOSE METRICS: Total DLP (mGy-cm): 174.1 FINDINGS: Pulmonary arteries: No acute pulmonary emboli. Aorta: No aortic aneurysm. No aortic dissection. Lungs: No pulmonary edema. No consolidation. No masses. Pleural spaces: No pneumothorax. No pleural effusion. Heart: No cardiomegaly. No pericardial effusion. Lymph nodes: Unremarkable. No enlarged lymph nodes. Bones/joints: No acute fracture. Soft tissues: Unremarkable. CT/CT angio chest PE protcl [id number] IMPRESSION: No acute findings.
[2025-01-08] MEDS: iohexol 350 mg/mL 500 mL Btl (per mL) IV (22:49)
[2025-01-08 23:17] LABS: Troponin 5 2HR < 6.0 ng/L (0-10); Troponin 5 2HR Delta 0 ABS# (0-10)
[2025-01-08 23:59] VITALS: BP 112/65; PULSE 64; RESP 14; O2SAT 98
== END 2025-01-08 23:59 | disposition home or self-care (01) ==
PROVIDERS: Emergency Medicine; Emergency Provider Emergency Medicine; PCP Nurse Practitioner Family
DX: R07.89 Other chest pain (principal)
CPT/HCPCS: 36415; 71045; 71275; 80053; 83690; 84484; 84703; 85025; 93005; 99285